=== PATIENT | male | born 1980 | race Caucasian/White ===

== ENCOUNTER 2020-02-06 14:38 | Emergency (ER) | payer BC, OTHER ==
--- NOTE | 2020-02-06 15:12 | EDPHYS ---
Physician Documentation [facility] Name: Karl Shepard Age: 39 yrs Sex: Male : 1980 Arrival Date: 02/06/2020 Time: 14:40 Bed 15 Private MD: ED Physician Thiago Zhu HPI: 02/05 15:06 This 39 yrs old Male presents to ER via Ambulatory with complaints of Back cp Pain, Abdominal Pain. 15:06 The patient presents with pain that is chronic, with no known mechanism of injury. The cp symptoms are located in the mid back area. Onset: The symptoms/episode began/occurred 4 month(s) ago. The pain does not radiate. Associated signs and symptoms: Pertinent positives: abdominal pain, Pertinent negatives: chest pain, constipation, dysuria, fever. The problem was sustained from unknown cause. Severity of symptoms: in the emergency department the symptoms have resolved, and did so just prior to arrival. 15:06 Patient reports steroids have helped in past with pain. cp Historical: - Allergies: 14:52 No Known Allergies; ca1 - Home Meds: 14:52 Baclofen Oral [Active]; meloxicam oral oral [Active]; Tramadol Oral [Active]; Advil ca1 Oral [Active]; cimetidine oral oral [Active]; - PMHx: 14:52 None; ca1 - PSHx: 14:52 None; ca1 - Immunization history:: Adult Immunizations up to date, Flu vaccine is not up to date. - Social history:: Smoking status: Patient denies any tobacco usage or history of. ROS: 15:09 Eyes: Negative for injury, pain, redness, and discharge. cp 15:09 Constitutional: Negative for body aches, chills, fever, poor PO intake. 15:09 Neck: Negative for stiffness. 15:09 Cardiovascular: Negative for chest pain. 15:09 Abdomen/GI: Positive for of the abdomen diffusely, intermittent pain, Negative for vomiting, diarrhea, constipation, bowel incontinence. 15:09 Back: Positive for of the mid back area, intermittent pain. 15:09 Neuro: Negative for altered mental status, headache, numbness, weakness. 15:09 All other systems are negative. Exam: 15:11 Head/Face: Normocephalic, atraumatic. cp 15:11 Constitutional: The patient appears in no acute distress, alert, awake, comfortable, non-toxic, well developed, well nourished. 15:11 Eyes: Periorbital structures: appear normal, Conjunctiva: normal, no exudate, no cp injection, Sclera: no appreciated abnormality, Lids and lashes: appear normal, bilaterally. 15:11 ENT: External ear(s): are unremarkable, Nose: is normal, Posterior pharynx: Airway: no evidence of obstruction, patent. 15:11 Chest/axilla: Inspection: normal. 15:11 Cardiovascular: Rate: tachycardic. 15:11 Respiratory: the patient does not display signs of respiratory distress, Respirations: normal, no use of accessory muscles. 15:11 Abdomen/GI: Exam negative for discomfort, distension, guarding, Inspection: abdomen appears normal. 15:11 Back: pain, is absent, ROM is normal. 15:11 Neuro: Orientation: to person, place \T\ time. Mentation: is normal. Vital Signs: 14:48 BP 151 / 94; Pulse 126; Resp 18 S; Temp 97.3(TE); Pulse Ox 100% on R/A; Weight 79.38 kg ca1 (R); Height 5 ft. 8 in. (172.72 cm) (R); 15:27 BP 120 / 92; Pulse 92; Resp 16; Pulse Ox 99% on R/A; zb 14:48 Body Mass Index 26.61 (79.38 kg, 172.72 cm) ca1 MDM: 15:05 Patient medically screened. cp 15:40 Data reviewed: vital signs, nurses notes, and as a result, I will discharge patient. cp 15:40 Counseling: I had a detailed discussion with the patient and/or guardian regarding: the cp historical points, exam findings, and any diagnostic results supporting the discharge/admit diagnosis, the need for outpatient follow up, a family practitioner, to return to the emergency department if symptoms worsen or persist or if there are any questions or concerns that arise at home. 02/05 15:06 Order name: Vital Signs; Complete Time: 15:46 cp Administered Medications: 15:46 Not Given (Patient Refused): NS 0.9% 1000 ml IV at 1 bolus Per protocol; 1000 mL bolus zb Disposition: 02/06 10:43 Co-signature as Attending Physician, Thiago Zhu MD I agree with the assessment and [facility] plan of care. Disposition: 02/06/20 15:40 Discharged to Home. Impression: Dorsalgia. - Condition is Stable. - Discharge Instructions: Back Pain, Adult, Back Exercises. - Prescriptions for Medrol (Arian) 4 mg Oral Tablets, Dose Pack - take 1 tablet by ORAL route as directed - follow package instructions; 1 packet. - Medication Reconciliation Form, Thank You Letter, Antibiotic Education, Prescription Opioid Use form. - Follow up: Private Physician; When: 2 - 3 days; Reason: Recheck today's complaints. - Problem is an ongoing problem. - Symptoms have improved. Signatures: Dispatcher [employer] EDThiago Edwards MD MD cha Page, Corey, PA PA cp Acob, Cheryl RN Sammie Arango RN RN zb Corrections: (The following items were deleted from the chart) 02/05 15:26 15:12 02/06/2020 15:12 Discharged to Home. Impression: Dorsalgia, unspecified. cp Condition is Stable. Forms are Medication Reconciliation Form, Thank You Letter, Antibiotic Education, Prescription Opioid Use. Follow up: Private Physician; When: 1 - 2 days; Reason: Recheck today's complaints. Problem is chronic. Symptoms have improved. cp 15:46 15:27 IV Saline Lock ordered. cp zb 15:46 15:27 Labs collected and sent ordered. cp zb 15:54 15:40 02/06/2020 15:40 Discharged to Home. Impression: Dorsalgia. Condition is Stable. zb Prescriptions for Medrol (Arian) 4 mg Oral Tablets, Dose Pack - take 1 tablet by ORAL route as directed - follow package instructions; 1 packet. and Forms are Medication Reconciliation Form, Thank You Letter, Antibiotic Education, Prescription Opioid Use. Follow up: Private Physician; When: 2 - 3 days; Reason: Recheck today's complaints. Problem is an ongoing problem. Symptoms have improved. cp
--- NOTE | 2020-02-06 15:12 | ER ---
Nurse's Notes [facility] Name: Karl Shepard Age: 39 yrs Sex: Male : 1980 Arrival Date: 02/06/2020 Time: 14:40 Bed 15 Private MD: Diagnosis: Dorsalgia Presentation: 02/05 14:48 Chief complaint: Patient states: Mid back pain, across, x 3.5 months. Had MRI done last ca1 Friday, says unremarkable. N/V with the pain. Has examiner rating clerk scheduled tomorrow but pain was so severe this morning, can't walk. Abdominal pain may just be from vomiting or taking a lot of pain meds. Coronavirus screen: Client denies travel out of the [place] in the last 14 days. nausea, vomiting. Client presents with at least one sign or symptom that may indicate coronavirus-19. Standard/surgical mask placed on the client. Provider contacted for isolation considerations. Ebola Screen: Patient negative for fever greater than or equal to 101.5 degrees Fahrenheit, and additional compatible Ebola Virus Disease symptoms Patient denies exposure to infectious person. Patient denies travel to an Ebola-affected area in the 21 days before illness onset. No symptoms or risks identified at this time. Initial Sepsis Screen: Does the patient meet any 2 criteria? No. Patient's initial sepsis screen is negative. Does the patient have a suspected source of infection? No. Patient's initial sepsis screen is negative. Risk Assessment: Do you want to hurt yourself or someone else? Patient reports no desire to harm self or others. Onset of symptoms was February 06, 2020. 14:48 Method Of Arrival: Ambulatory ca1 14:48 Acuity: JANETT 3 ca1 Historical: - Allergies: 14:52 No Known Allergies; ca1 - Home Meds: 14:52 Baclofen Oral [Active]; meloxicam oral oral [Active]; Tramadol Oral [Active]; Advil ca1 Oral [Active]; cimetidine oral oral [Active]; - PMHx: 14:52 None; ca1 - PSHx: 14:52 None; ca1 - Immunization history:: Adult Immunizations up to date, Flu vaccine is not up to date. - Social history:: Smoking status: Patient denies any tobacco usage or history of. Screenin:50 Abuse screen: Denies threats or abuse. Denies injuries from another. Nutritional zb screening: No deficits noted. Tuberculosis screening: No symptoms or risk factors identified. Fall Risk None identified. Assessment: 15:30 General: Appears in no apparent distress. comfortable, Behavior is calm, cooperative, zb appropriate for age. Pain: Denies pain. Neuro: Level of Consciousness is awake, alert, obeys commands, Oriented to person, place, time. Cardiovascular: Capillary refill < 3 seconds in bilateral Patient's skin is warm and dry. Respiratory: Airway is patent is compromised Breath sounds are clear bilaterally. GI: Abdomen is flat, non-distended. : No signs and/or symptoms were reported regarding the genitourinary system. EENT: No signs and/or symptoms were reported regarding the EENT system. Derm: No signs and/or symptoms reported regarding the dermatologic system. Musculoskeletal: No signs and/or symptoms reported regarding the musculoskeletal system. Circulation, motion, and sensation intact. Capillary refill < 3 seconds, in bilateral Range of motion: intact in all extremities. 15:50 Reassessment: Patient appears in no apparent distress at this time. pt reports that he zb is fine. decided that he would f/u with his PCP. up ad chino, left with family member. Vital Signs: 14:48 BP 151 / 94; Pulse 126; Resp 18 S; Temp 97.3(TE); Pulse Ox 100% on R/A; Weight 79.38 kg ca1 (R); Height 5 ft. 8 in. (172.72 cm) (R); 15:27 BP 120 / 92; Pulse 92; Resp 16; Pulse Ox 99% on R/A; zb 14:48 Body Mass Index 26.61 (79.38 kg, 172.72 cm) ca1 ED Course: 14:40 Patient arrived in ED. ag5 14:41 Thiago Parada PA is PHCP. cp 14:41 Thiago Zhu MD is Attending Physician. cp 14:50 Triage completed. ca1 14:52 Sammie Fink RN is Primary Nurse. zb 14:52 Arm band placed on right wrist. ca1 15:30 Patient has correct armband on for positive identification. Placed in gown. Bed in low zb position. Call light in reach. desk monitor on. Pulse ox on. Door closed. Noise minimized. 15:30 No provider procedures requiring assistance completed. Patient did not have IV access zb during this emergency room visit. Administered Medications: 15:46 Not Given (Patient Refused): NS 0.9% 1000 ml IV at 1 bolus Per protocol; 1000 mL bolus zb Outcome: 15:12 Discharge ordered by MD. cp 15:30 Discharged to home ambulatory, with family. zb 15:30 Condition: stable 15:40 Discharge ordered by MD. cp 15:50 Discharge instructions given to patient, Instructed on discharge instructions, follow zb up and referral plans. medication usage, Demonstrated understanding of instructions, follow-up care, medications, Prescriptions given X 1. 15:54 Patient left the ED. zb Signatures: Thiago Parada PA PA cp Acob, Cheryl RN RN Alexandra Soares [facility] Sammie Fink RN RN gulshan
[2020-02-10 01:50] VITALS: TEMP 97.3
[2020-02-10 01:51] VITALS: BP 120/92; O2SAT 99
== END 2020-02-06 15:54 | disposition home or self-care (01) ==
LOC: ER 14:38
DX: M54.9 Dorsalgia, unspecified (principal)
CPT/HCPCS: 99284